=== PATIENT | male | born 1955 | race Hispanic/Latino ===

== ENCOUNTER → 2019-02-26 | Outpatient (CLI) | payer OTHER ==
[~2019-02-26] MED LIST: ASPI-555 PO; CHOL100018 PO; FLUT16H NASAL; GLYB5TAB8 PO; METF-444 PO; OMEP40CA PO; SIMV20TA6 PO; TELM80TA10 PO
== END | disposition home or self-care (01) ==
LOC: RAH 14:19
PROVIDERS: ATTEND Internal Medicine Cardiovascular Disease
DX: Z13.6 Encounter for screening for cardiovascular disorders (principal)
CPT/HCPCS: 75571

== ENCOUNTER → 2019-04-05 | Outpatient (CLI) | payer OTHER | END | disposition home or self-care (01) | LOC: RAH 13:51 | PROVIDERS: ATTEND Internal Medicine Critical Care Medicine | DX: I70.213 Atherosclerosis of native arteries of extremities with intermittent claudication, bilateral legs (principal) | CPT/HCPCS: 93922; 93925 ==

== ENCOUNTER → 2019-04-09 | Outpatient (CLI) | payer OTHER ==
[~2019-04-09] VITALS: Ht 165.1 cm; Wt 79.8 kg
[~2019-04-09] MED LIST changes: +REGADENOSON 0.4 MG/5 ML PF SYG IVP SCH
== END | disposition home or self-care (01) ==
LOC: SHCH 08:26
PROVIDERS: ATTEND Internal Medicine Cardiovascular Disease
DX: I25.10 Atherosclerotic heart disease of native coronary artery without angina pectoris (principal)
CPT/HCPCS: 78452; 93017; 96374; A9500 ×2; J2785